=== PATIENT | female | born 2000 | race African-American/Black ===

== ENCOUNTER 2021-05-28 08:10 | Outpatient (CLI) | payer BC, SELFPAY ==
--- NOTE | ~2021-05-28 | US_ITS ---
EXAMINATION: US OB <=14 wk fetus w TV DATE: 05/28/2021 09:44 INDICATION: . Cramping. TECHNIQUE: Real-time transabdominal and transvaginal pelvic ultrasound was performed. COMPARISON: None. FINDINGS: TRANSABDOMINAL ULTRASOUND: The uterus measures 8.4 x 5.7 x 5.4 cm. TRANSVAGINAL ULTRASOUND: There is an intrauterine gestational sac with mean diameter of 1.1 cm, which correlates with an estimated gestational age of 5 weeks and 5 days. A yolk sac is identified. The f etal crown rump length measures 1 mm. heart motion is identified measuring 85 beats per minute (bpm) by M-mode Doppler. The right ovary measures 3.1 x 1.3 x 1.8 cm. The left ovary measures 3.4 x 2 .8 x 3.0 cm. There is no free fluid in the pelvis. IMPRESSION: 1. Single living intrauterine gestation with estimated gestational age of 5 weeks and 5 days. Reviewed, dictated and finalized at location A. ERTY APPRAISER IMPRESSION: 1. Single living intrauterine gestation with estimated gestational age of 5 we eks and 5 days.
== END 2021-05-28 08:11 | disposition home or self-care (01) ==
PROVIDERS: PCP Emergency Medicine; Visit Provider Emergency Medicine
DX: Z32.01 Encounter for pregnancy test, result positive (principal); Z3A.01 Less than 8 weeks gestation of pregnancy
CPT/HCPCS: 76801; 76817

== ENCOUNTER 2021-08-14 15:14 | Outpatient (CLI) | payer BC, SELFPAY ==
[2021-08-14 15:58] LABS: Basophils Percent Auto 0.2 % (0.2-1.2); Eosinophils Percent Auto 0.2 % (0-4.4); Hematocrit 36.9 % (37.0-47.0); Hemoglobin 12.5 g/dL (12.0-15.0); Immature Granulocyte Absolute 0.07 K/mm3 (0.00-0.031); Immature Granulocyte Percent A 0.4 % (0-0.5); Lymphocytes Absolute Auto 1.76 K/mm3 (0.9-3.2); Lymphocytes Percent Auto 10.9 % (18.3-44.2); Mean Corpuscular HGB Conc 33.9 g/dl (32-36); Mean Corpuscular Hemoglobin 27.7 pg (26-34); Mean Corpuscular Volume 81.6 fl (80-100); Mean Platelet Volume 9.3 fl (7.4-10.4); Monocytes Absolute Auto 0.7 K/mm3 (0.1-0.6); Monocytes Percent Auto 4.5 % (2.6-8.5); Neutrophils Absolute Auto 13.5 K/mm3 (1.3-6.7); Neutrophils Percent Auto 83.8 % (45.5-73.1); Platelet Count Result 302 k/mm3 (150-375); Red Blood Count 4.52 M/mm3 (4.2-5.4); Red Cell Distribution Width 14.9 % (11.5-14.5); White Blood Count 16.1 K/mm3 (4.5-10.0)
[2021-08-14 16:58] LABS: Rubella IgG Antibody 99.5 IU/ML
[2021-08-14 17:00] LABS: HIV 1/2 Ab P24 Ag Result Negative (Negative)
[2021-08-15 06:46] LABS: Rapid Plasma Reagin Non-Reactive (NonReactive)
[2021-08-17 03:28] LABS: Hepatitis Be Antigen Nonreactive
== END 2021-08-14 15:15 ==
PROVIDERS: PCP Emergency Medicine; Visit Provider Obstetrics & Gynecology
DX: Z34.91 Encounter for supervision of normal pregnancy, unspecified, first trimester (principal); Z3A.00 Weeks of gestation of pregnancy not specified
CPT/HCPCS: 36415; 84702; 85025; 85660; 86592; 86644; 86703; 86747; 86762; 86787; 86850; 87086; 87350; G0432